=== PATIENT | female | born 1990 | race Caucasian/White ===

== ENCOUNTER 2017-06-12 11:35 | Emergency (ER) | payer BC ==
[2017-06-12 12:01] VITALS: BP 108/65
--- NOTE | 2017-06-12 12:06 | UC ---
Skin Complaint HPI - HPI Summary HPI Summary: Rash on the face that is coming and going over the last 24 hours. it is itchy. no new products, foods, medications. No other involvement. - History of Current Complaint Time Seen by Provider: 06/12/17 11:53 Stated Complaint: SKIN COMPLAINT FACE Hx Obtained From: Patient, Family/Manufacturing Helper Hx Last Menstrual Period: 06/10/17 ?: No Onset/Duration: Gradual Onset Timing: Intermittent Episodes Lasting: - hours. Onset Severity: Moderate Current Severity: Moderate Location: Discrete, Face Aggravating: Nothing Alleviating: Nothing Associated Signs & Symptoms: Positive: Rash. Negative: Pallor, Shivering, Difficulty Breathing, Fever, Chills, Cough, Wheezing, Drainage, Bruising, Tenderness, Joint Swelling Review of Systems Skin: Rash All Other Systems Reviewed And Are Negative: Yes PMH/Surg Hx/FS Hx/Imm Hx Previously Healthy: No - childhood asthma. - Surgical History Surgical History: None - Family History Known Family History: Positive: Other - no related family history with rashes. - Social History Alcohol Use: None Substance Use Type: None Smoking Status (MU): Never Smoked Tobacco Physical Exam Triage Information Reviewed: Yes Appearance: Well-Appearing, No Pain Distress, Well-Nourished Vital Signs: Initial Vital Signs Temp 98.9 F 06/12/17 11:57 Pulse 75 06/12/17 11:57 Resp 14 06/12/17 11:57 BP 108/65 06/12/17 11:57 Pulse Ox 100 06/12/17 11:57 Vital Signs Reviewed: Yes Eye Exam: Normal ENT Exam: Normal Neck exam: Normal Neck: Positive: Supple, Nontender, No Lymphadenopathy Respiratory Exam: Normal Cardiovascular Exam: Normal Abdominal Exam: Normal Musculoskeletal Exam: Normal Neurological Exam: Normal Psychological Exam: Normal Skin Exam: Other Skin: Positive: Other - fine papular rash of the left face with small raised welts. no redness or pustules. Course/Dx - Course Course Of Treatment: rash, unkown cause. we will treat with prednisone. - Differential Diagnoses - Skin Complaint Differential Diagnoses: Cellulitis, Local Allergic Reaction, Medication; Adverse Reaction, MRSA, Scabies, Urticaria, Varicella Zoster, Viral Exanthem, VRE - Diagnoses Provider Diagnoses: rash of the face. Discharge - Discharge Plan Condition: Good Disposition: HOME Prescriptions: Methylprednisolone [Medrol Dosepak 4 MG*] 4 mg PO .SEE [employer] INSTRUCTION #21 tab Patient Education Materials: Urticaria (ED)
== END 2017-06-12 12:06 | disposition home or self-care (01) ==
LOC: UCCORT 11:35
DX: R21 Rash and other nonspecific skin eruption (principal)
CPT/HCPCS: 99202; G0463